=== PATIENT | female | born 1955 | race Caucasian/White ===

== ENCOUNTER 2018-01-22 07:19 | Emergency (ER) | payer OTHER ==
[~2018-01-22] VITALS: Ht 154.9 cm; Wt 77.1 kg
== END 2018-01-22 07:58 | disposition home or self-care (01) ==
LOC: ER 07:19
DX: J06.9 Acute upper respiratory infection, unspecified (principal); J31.0 Chronic rhinitis; Z88.5 Allergy status to narcotic agent
CPT/HCPCS: 99281

== ENCOUNTER 2020-02-22 12:13 | Inpatient (IN) | payer OTHER ==
[~2020-02-22] VITALS: Ht 307.3 cm; Wt 88.9 kg
[2020-02-22] MEDS ORDERED: AMLO10 PO (14:33)
[2020-02-24 14:08] LABS: BASOPHILS ABSOLUTE AUTO 0.06 K/mm3 (0.00-0.23); BASOPHILS PERCENT AUTO 1 % (0-2); EOSINOPHILS ABSOLUTE AUTO 0.26 K/mm3 (0.00-0.68); EOSINOPHILS PERCENT AUTO 2 % (0-6); Hematocrit 42.5 % (33.0-51.0); Hemoglobin 13.7 g/dL (11.5-16.0); IMMATURE GRAN ABSOLUTE AUTO 0.05 K/mm3 (0.00-0.10); IMMATURE GRAN PERCENT AUTO 0 % (0-1); LYMPHOCYTES ABSOLUTE AUTO 4.11 K/mm3 (0.84-5.20); LYMPHOCYTES PERCENT AUTO 35 % (21-46); MONOCYTES PERCENT AUTO 6 % (4-13); Mean Corpuscular HGB 28.2 pg (26.0-34.0); Mean Corpuscular HGB Conc 32.2 g/dL (31.5-36.5); Mean Corpuscular Volume 88 fL (80-100); Mean Platelet Volume 11.7 fL (9.1-12.4); NEUTROPHILS ABSOLUTE AUTO 6.63 K/mm3 (1.96-9.15); NEUTROPHILS PERCENT AUTO 56 % (41-73); Platelet Count 253 K/mm3 (150-400); RDW Coefficient Variation 13.5 % (11.7-14.2); RDW Standard Deviation 43.6 fL (35.1-46.3); Red Blood Cell Count 4.85 M/mm3 (3.80-5.20); White Blood Cell Count 11.81 K/mm3 (4.00-11.30)
[2020-02-24 14:28] LABS: Anion Gap 5 mmol/L (6-16); Blood Urea Nitrogen 15 mg/dL (8-24); Bun/Creatinine Ratio 22.9 (12.0-20.0); CO2, Blood 26 mmol/L (21-32); Chloride, Blood 108 mmol/L (98-108); Creatinine, Blood 0.65 mg/dL (0.40-1.00); Glomerular Filtration Rate >60 (60-); Glucose, Blood 113 mg/dL (70-99); Potassium, Blood 3.9 mmol/L (3.5-5.5); Sodium, Blood 139 mmol/L (136-145)
--- NOTE | 2020-02-25 08:43 | NUR ---
Ambulatory in Day Surgery History, Chart, Medications and Allergies reviewed before start of procedure.Patient confirms NPO status and agrees with scheduled surgery. Patient reports completing Chlorhexadine shower X2 prior to admission to hospital.Surgical site prepped with 2% Chlorhexidine cloth wipe. Lungs clear T/O to Auscultation. PT GLASSES WILL BE REMOVED AND TAKEN TO PACU.
--- NOTE | 2020-02-25 19:34 | NUR ---
SHIFT SUMMARY PT A&OX4, VSS, S/P TIFFANI, EDMOND WNL; KPAD ON. PAIN MANAGED PER EMAR. ELIAS PO CL DIET. STAND AT BEDSIDE. 2LNC, BIOX BEDSIDE; TCDB EDU & ENC PT. NUNN PATENT & DRAINING YELLOW URINE, STAT LOCK ON, OFF FLOOR. REPORT GIVEN TO KALI WHITMORE.
[2020-02-26 04:30] LABS: BASOPHILS ABSOLUTE AUTO 0.03 K/mm3 (0.00-0.23); BASOPHILS PERCENT AUTO 0 % (0-2); EOSINOPHILS PERCENT AUTO 0 % (0-6); Hematocrit 37.9 % (33.0-51.0); IMMATURE GRAN ABSOLUTE AUTO 0.06 K/mm3 (0.00-0.10); IMMATURE GRAN PERCENT AUTO 0 % (0-1); LYMPHOCYTES ABSOLUTE AUTO 2.35 K/mm3 (0.84-5.20); LYMPHOCYTES PERCENT AUTO 14 % (21-46); MONOCYTES ABSOLUTE AUTO 1.31 K/mm3 (0.16-1.47); MONOCYTES PERCENT AUTO 8 % (4-13); Mean Corpuscular HGB Conc 31.7 g/dL (31.5-36.5); Mean Corpuscular Volume 88 fL (80-100); Mean Platelet Volume 11.7 fL (9.1-12.4); NEUTROPHILS ABSOLUTE AUTO 12.89 K/mm3 (1.96-9.15); NEUTROPHILS PERCENT AUTO 77 % (41-73); Platelet Count 230 K/mm3 (150-400); Red Blood Cell Count 4.29 M/mm3 (3.80-5.20); White Blood Cell Count 16.64 K/mm3 (4.00-11.30)
[2020-02-26 04:54] LABS: Anion Gap 6 mmol/L (6-16); Blood Urea Nitrogen 11 mg/dL (8-24); Bun/Creatinine Ratio 15.9 (12.0-20.0); CO2, Blood 28 mmol/L (21-32); Calcium, Blood 8.4 mg/dL (8.5-10.1); Chloride, Blood 106 mmol/L (98-108); Creatinine, Blood 0.69 mg/dL (0.40-1.00); Glomerular Filtration Rate >60 (60-); Glucose, Blood 123 mg/dL (70-99); Potassium, Blood 3.8 mmol/L (3.5-5.5); Sodium, Blood 140 mmol/L (136-145)
--- NOTE | 2020-02-26 05:47 | NUR ---
SHIFT SUMMARY: TRISH IS POD1 FOR A TIFFANI. NUNN REMOVED THIS MORNING. SHE REPORTS EXCELLENT PAIN CONTROL WITH 1 PERCOCET. SHE DENIES ANY NAUSEA OR VOMITING. SHE HAS COMPLAINED OF A SCRATCHY THROAT. SHE IS TOLERATING CLEARS WELL. SHE WORE HER CPAP THROUGHOUT THE NIGHT. DRESSING ON MIDLINE INCISION C/D&I, EDMOND PATENT. IV TO RIGHT UPPER ARM PATENT. SHE USES HER CALL LIGHT APPROPRIATELY. SHE IS LYING IN BED WITH HER CALL LIGHT IN REACH. WILL REPORT TO DAY SHIFT RN.
--- NOTE | 2020-02-26 07:54 | NUR ---
02/26/20 0754 Tala Hinton VERIFICATIONS: EDIT CHART.
--- NOTE | 2020-02-26 19:46 | NUR ---
SHIFT SUMMARY PT A&OX4, VSS, POD1 TIFFANI, EDMOND WNL, ABD BINDER, KPAD. PAIN MANAGED WITH 5 MG PERC. AMBULATING INDEPENDENTLY TO BRP AND HALLWAY; UP TO CHAIR T/O SHIFT. VOIDING WELL. ELIAS REG DIET; DENIES N&V. BIOX/HOME CPAP AT BEDSIDE. WILL REPORT TO ONCANGEL NELSON RN.
--- NOTE | 2020-02-27 05:26 | NUR ---
PT WOKE THIS AM WITH C/O SUDDEN ONSET OF INCREASED PAIN TO ABD. PT VERB HAD FELT FINE PREVIOUSLY.PT OOB FOR VOID OF 400 ML. MEDICATED WITH TORADOL AND MORPHINE 2.5 MG IV. ASSISTED PT BACK TO BED AND REASSESSED ABD. ABD SOFT. WITH ASSESS, PT ALSO REPORTS LOWER ABD "NUMB" ALTHOUGH CAN DISTINGUISH BETWEEN TOUCH/NON TOUCH.PVR 246 ML. DISCUSSED THIS WITH PT. NO LABS ARE ORDERED THIS AM. I CALLED [facility] AND CALL OUT PLACED TO MARISA DELGADILLO LAUNDRY ASSISTANT O.C.AND DR DANIELS SPOKE WITH DR ZARCO.NEW ORDERS RECEIVED.
[2020-02-27 06:01] LABS: Hematocrit 35.5 % (33.0-51.0); Mean Corpuscular Volume 90 fL (80-100); Mean Platelet Volume 11.4 fL (9.1-12.4); Platelet Count 206 K/mm3 (150-400); RDW Coefficient Variation 14.1 % (11.7-14.2); RDW Standard Deviation 47.3 fL (35.1-46.3); Red Blood Cell Count 3.93 M/mm3 (3.80-5.20); White Blood Cell Count 11.62 K/mm3 (4.00-11.30)
--- NOTE | 2020-02-27 06:02 | NUR ---
SUMMARY STRAIGHT CATH DRAINED 375 ML WITH PT VERB RELIEF.
[2020-02-27 06:16] LABS: International Normalized Ratio 0.94; Prothrombin Time Results 10.1 Sec (9.7-11.5)
[2020-02-27 06:35] LABS: Alanine Aminotransfer (ALT/SGP 22 U/L (12-78); Albumin, Blood 2.8 g/dL (3.4-5.0); Albumin/Globulin Ratio 0.7 (0.8-1.8); Alk Phos 108 U/L (50-136); Anion Gap 6 mmol/L (6-16); Aspartate Aminotrans (AST/SGOT 18 U/L (12-37); BASOPHILS PERCENT MAN 0 % (0-2); Bilirubin, Total 0.6 mg/dL (0.1-1.0); Blood Urea Nitrogen 12 mg/dL (8-24); Bun/Creatinine Ratio 18.5 (12.0-20.0); CO2, Blood 26 mmol/L (21-32); Calcium, Blood 8.1 mg/dL (8.5-10.1); Chloride, Blood 109 mmol/L (98-108); Creatinine, Blood 0.65 mg/dL (0.40-1.00); EOSINOPHILS ABSOLUTE MAN 0.11 K/mm3 (0.00-0.68); EOSINOPHILS PERCENT MAN 1 % (0-6); Glomerular Filtration Rate >60 (60-); Glucose, Blood 86 mg/dL (70-99); LYMPHOCYTES PERCENT MAN 25 % (21-46); MONOCYTES ABSOLUTE MAN 0.81 K/mm3 (0.16-1.47); MONOCYTES PERCENT MAN 7 % (4-13); NEUTROPHILS ABSOLUTE MAN 7.78 K/mm3 (1.96-9.15); Potassium, Blood 3.6 mmol/L (3.5-5.5); SEG NEUTROPHILS PERCENT MAN 67 % (41-73); Sodium, Blood 141 mmol/L (136-145); TOTAL CELLS COUNTED 100; Total Protein, Blood 6.8 g/dL (6.4-8.2)
--- NOTE | 2020-02-27 15:11 | NUR ---
PT REFUSING SUPPOSITORY AT THIS TIME
--- NOTE | 2020-02-27 16:39 | NUR ---
PT REPORTED PASSED FLATUS.
--- NOTE | 2020-02-27 18:06 | NUR ---
SUMMARY NO ACUTE CHANGES T/O SHIFT. PT UP INDEPENDENTLY IN ROOM. MEDICATED ONCE DURING SHIFT FOR PAIN. PT DECLINED SUPPOSITORY BUT DID REPORT PASSED FLATUS THIS AFTERNOON. CALL LIGHT IN REACH.
--- NOTE | 2020-02-27 18:27 | NUR ---
FLATUS PT PASSING MORE FLATUS.
--- NOTE | 2020-02-28 07:35 | NUR ---
SUMMARY PT VOIDING WITHOUT DIFF.MINIMAL PVR. PASSING FLATUS.VERB ADEQUATE PAIN CONTROL. AMBULATORY IN HALLS.
--- NOTE | 2020-02-28 11:12 | NUR ---
DR ZARCO IN TO SEE PT.
[2020-02-28] MEDS ORDERED: Percocet 5-3251 EACH PO (11:25)
[2020-02-28] MEDS ORDERED: IBUP800 PO (11:26)
--- NOTE | 2020-02-28 12:59 | NUR ---
DISCHARGED DC'D IV, CATHETER INTACT. REVIEWED DC INSTRUCTIONS W/PT PT AND SPOUSE. VERBALIZED UNDERSTANDING. PT LEFT UNIT IN WC ACCOMPANIED BY SPOUSE W/POSSESSIONS AND DC PAPERWORK IN HAND.
== END 2020-02-28 13:05 | disposition home or self-care (01) | DRG 743 ==
LOC: SURS 02-25 07:56 → PRE IP 02-25 09:30 → SURS 02-25 14:17
PROVIDERS: Obstetrics & Gynecology; ADMIT Obstetrics & Gynecology
PROC: 0UT70ZZ Resection of Bilateral Fallopian Tubes, Open Approach (ICD-10-PCS; 2020-02-25)
PROC: 0UT20ZZ Resection of Bilateral Ovaries, Open Approach (ICD-10-PCS; 2020-02-25)
PROC: 0UT90ZZ Resection of Uterus, Open Approach (ICD-10-PCS; principal; 2020-02-25 09:30)
DX: D25.9 Leiomyoma of uterus, unspecified (principal); N95.0 Postmenopausal bleeding; G47.30 Sleep apnea, unspecified
CPT/HCPCS: 36415; 80048; 80053; 85007; 85025; 85027; 85610; 85730; 86850; 86900; 86901; 88307; 94660; 94762; J0690; J1100; J1650; J1885; J2250; J2270; J2405; J2704; J2710; J2765; J3010; J7120